=== PATIENT | male | born 1955 | race Caucasian/White ===

== ENCOUNTER → 2016-06-06 | Outpatient (CLI) | payer BC | LOC: RAD 10:42 | PROVIDERS: ATTEND Family Medicine | DX: S46.001A Unspecified injury of muscle(s) and tendon(s) of the rotator cuff of right shoulder, initial encounter (principal); S43.421A Sprain of right rotator cuff capsule, initial encounter; X58.XXXA Exposure to other specified factors, initial encounter | CPT/HCPCS: 73221 ==

== ENCOUNTER → 2016-06-23 | Outpatient (CLI) | payer BC ==
--- NOTE | 2016-06-23 11:58 | Diagnostic Imaging Report ---
INDICATION: Limited range of motion. Axillary, scapular Y, and frontal internal and external rotation radiographs are performed. AVAILABLE COMPARISONS: None. Hill-Sachs deformity is present also noted on MRI from 06/06/2016. Humeral head is in normal position relative to the glenoid fossa on today's exam. There is no fracture identified. AC joint does not show any significant abnormality. No osteolytic or osteoblastic lesion is identified. IMPRESSION: Hill-Sachs deformity. No acute finding. Dictated by: Dictated on workstation # [id number]
== END ==
LOC: RAD 10:51
PROVIDERS: ATTEND Family Medicine
DX: S43.004A Unspecified dislocation of right shoulder joint, initial encounter (principal); M75.101 Unspecified rotator cuff tear or rupture of right shoulder, not specified as traumatic; S42.291A Other displaced fracture of upper end of right humerus, initial encounter for closed fracture; X58.XXXA Exposure to other specified factors, initial encounter
CPT/HCPCS: 73030